=== PATIENT | male | born 1990 | race Caucasian/White ===

== ENCOUNTER 2017-12-28 01:07 | Emergency (ER) | payer OTHER ==
[~2017-12-28] VITALS: Ht 182.9 cm; Wt 77.1 kg
[2017-12-28] MEDS ORDERED: LEVAQUIN750 MG PO (03:31)
== END 2017-12-28 04:04 | disposition home or self-care (01) ==
LOC: ER 01:07
DX: L03.115 Cellulitis of right lower limb (principal)